=== PATIENT | male | born 1960 | race Caucasian/White ===

== ENCOUNTER → 2019-04-13 10:47 | Outpatient (BNVA) | payer BC, SELFPAY | PROVIDERS: Family Provider Family Medicine; PCP Family Medicine; Visit Provider Registered Nurse | DX: Z79.899 Other long term (current) drug therapy (principal); F31.12 Bipolar disorder, current episode manic without psychotic features, moderate | CPT/HCPCS: 80156 ==

== ENCOUNTER → 2020-02-01 09:38 | Outpatient (BNVA) | payer BC, SELFPAY | PROVIDERS: Family Provider Family Medicine; PCP Family Medicine; Visit Provider Family Medicine | DX: I10 Essential (primary) hypertension (principal); E11.59 Type 2 diabetes mellitus with other circulatory complications | CPT/HCPCS: 80053; 80061; 83036 ==

== ENCOUNTER → 2020-03-10 11:44 | Outpatient (BNVA) | payer OTHER, SELFPAY | PROVIDERS: Family Provider Family Medicine; PCP Family Medicine; Visit Provider Emergency Medicine | DX: T25.022A Burn of unspecified degree of left foot, initial encounter (principal); L03.119 Cellulitis of unspecified part of limb | CPT/HCPCS: 73630 ==

== ENCOUNTER → 2020-03-24 00:01 | Outpatient (BNVA) | payer OTHER, SELFPAY | PROVIDERS: Family Provider Family Medicine; PCP Family Medicine; Visit Provider Emergency Medicine | DX: E78.5 Hyperlipidemia, unspecified (principal); R35.1 Nocturia | CPT/HCPCS: 84443; G0103 ==

== ENCOUNTER → 2020-07-13 18:00 | Outpatient (BNVA) | payer OTHER, SELFPAY | PROVIDERS: Family Provider Family Medicine; PCP Family Medicine; Visit Provider Family Medicine | DX: E11.59 Type 2 diabetes mellitus with other circulatory complications (principal); I10 Essential (primary) hypertension; J32.9 Chronic sinusitis, unspecified; K59.09 Other constipation; K21.9 Gastro-esophageal reflux disease without esophagitis; F31.12 Bipolar disorder, current episode manic without psychotic features, moderate; Z79.899 Other long term (current) drug therapy; Z91.19 Patient's noncompliance with other medical treatment and regimen | CPT/HCPCS: 80053; 80156; 83036; 85025 ==

== ENCOUNTER → 2020-07-18 17:14 | Outpatient (BNVA) | payer OTHER, SELFPAY | PROVIDERS: Family Provider Family Medicine; PCP Family Medicine; Visit Provider Nurse Practitioner Family | DX: E11.59 Type 2 diabetes mellitus with other circulatory complications (principal); R11.2 Nausea with vomiting, unspecified; I10 Essential (primary) hypertension; H61.23 Impacted cerumen, bilateral; H61.20 Impacted cerumen, unspecified ear | CPT/HCPCS: 36416; 82962 ==

== ENCOUNTER → 2021-02-22 12:01 | Outpatient (BNVA) | payer OTHER, SELFPAY | PROVIDERS: Family Provider Family Medicine; PCP Family Medicine; Visit Provider Family Medicine | DX: I10 Essential (primary) hypertension (principal); Z13.6 Encounter for screening for cardiovascular disorders; Z13.220 Encounter for screening for lipoid disorders; E11.59 Type 2 diabetes mellitus with other circulatory complications | CPT/HCPCS: 36416; 82962 ==

== ENCOUNTER → 2021-06-21 14:18 | Outpatient (BNVA) | payer OTHER, SELFPAY | PROVIDERS: Family Provider Family Medicine; PCP Family Medicine; Visit Provider Registered Nurse | DX: Z79.899 Other long term (current) drug therapy (principal) | CPT/HCPCS: 80053; 80061; 80156; 83036; 85025 ==

== ENCOUNTER → 2021-11-08 13:43 | Outpatient (BNVA) | payer OTHER, SELFPAY | PROVIDERS: Family Provider Family Medicine; PCP Family Medicine; Visit Provider Family Medicine | DX: J32.9 Chronic sinusitis, unspecified (principal); M19.90 Unspecified osteoarthritis, unspecified site; I10 Essential (primary) hypertension; E11.9 Type 2 diabetes mellitus without complications; M54.9 Dorsalgia, unspecified; K21.9 Gastro-esophageal reflux disease without esophagitis; K59.09 Other constipation; E11.59 Type 2 diabetes mellitus with other circulatory complications; H66.93 Otitis media, unspecified, bilateral | CPT/HCPCS: 80053; 83036 ==

== ENCOUNTER → 2022-02-16 09:47 | Outpatient (BNVA) | payer OTHER, SELFPAY | PROVIDERS: Family Provider Family Medicine; PCP Family Medicine; Visit Provider Chiropractor | DX: E11.59 Type 2 diabetes mellitus with other circulatory complications (principal); M79.10 Myalgia, unspecified site; R53.81 Other malaise; E11.9 Type 2 diabetes mellitus without complications | CPT/HCPCS: 80053; 83036; 83090; 83525; 85025; 86337; 86341 ==

== ENCOUNTER → 2022-10-08 12:00 | Outpatient (BNVA) | payer OTHER, SELFPAY | PROVIDERS: Family Provider Family Medicine; PCP Family Medicine; Visit Provider Family Medicine | DX: E11.59 Type 2 diabetes mellitus with other circulatory complications (principal); R35.1 Nocturia; I10 Essential (primary) hypertension; M19.90 Unspecified osteoarthritis, unspecified site | CPT/HCPCS: 80053; 80061; 82043; 83036; 84153 ==

== ENCOUNTER → 2022-10-10 09:09 | Outpatient (BNVA) | payer OTHER, SELFPAY | PROVIDERS: Family Provider Family Medicine; PCP Family Medicine; Visit Provider Registered Nurse | DX: Z79.899 Other long term (current) drug therapy (principal) | CPT/HCPCS: 80156; 82306; 82607; 84443; 85025 ==

== ENCOUNTER → 2022-11-02 10:02 | Outpatient (BNVA) | payer OTHER, SELFPAY | PROVIDERS: Family Provider Family Medicine; PCP Family Medicine; Visit Provider Family Medicine | DX: E11.59 Type 2 diabetes mellitus with other circulatory complications (principal); I10 Essential (primary) hypertension | CPT/HCPCS: 80053; 83036 ==

== ENCOUNTER → 2023-08-21 11:39 | Outpatient (BNVA) | payer OTHER, SELFPAY | PROVIDERS: Family Provider Family Medicine; PCP Family Medicine | DX: R35.1 Nocturia (principal); E78.5 Hyperlipidemia, unspecified; I10 Essential (primary) hypertension; E11.59 Type 2 diabetes mellitus with other circulatory complications | CPT/HCPCS: 80053; 80061; 83036; G0103 ==

== ENCOUNTER → 2024-01-15 10:28 | Outpatient (BNVA) | payer OTHER, SELFPAY | PROVIDERS: Family Provider Family Medicine | DX: R35.1 Nocturia (principal); E11.59 Type 2 diabetes mellitus with other circulatory complications | CPT/HCPCS: 80053; 83036; G0103 ==

== ENCOUNTER → 2024-04-01 09:57 | Outpatient (BNVA) | payer OTHER, SELFPAY | PROVIDERS: Family Provider Family Medicine | DX: E11.9 Type 2 diabetes mellitus without complications (principal); I10 Essential (primary) hypertension; R35.1 Nocturia; E11.59 Type 2 diabetes mellitus with other circulatory complications; E78.5 Hyperlipidemia, unspecified | CPT/HCPCS: 80053; 83036 ==

== ENCOUNTER → 2024-08-18 11:43 | Outpatient (BNVA) | payer OTHER, SELFPAY | DX: R35.1 Nocturia (principal); E78.5 Hyperlipidemia, unspecified; E11.59 Type 2 diabetes mellitus with other circulatory complications; I10 Essential (primary) hypertension; M19.90 Unspecified osteoarthritis, unspecified site; M25.562 Pain in left knee | CPT/HCPCS: 73562; 80053; 80061; 83036; G0103 ==